=== PATIENT | female | born 1985 ===

== ENCOUNTER 2017-04-18 18:43 | Emergency (ER) | payer MEDICAID ==
--- NOTE | 2017-04-18 19:55 | C.PDOC ---
History Of Present Illness 32 yr old female presents to the ER with complaints of chest pain, cough and subjective fevers for 1 day. Patient states the cough is dry. Denies sore throat , SOB, nausea, vomiting, weakness or numbness. Time Seen by Provider: 04/18/17 19:46 Chief Complaint (Nursing): Chest Pain History Per: Patient History/Exam Limitations: no limitations Onset/Duration Of Symptoms: Days (1) Current Symptoms Are (Timing): Still Present Past Medical History Reviewed: Historical Data, Nursing Documentation, Vital Signs Vital Signs: Last Vital Signs Temp 98.1 F 04/18/17 21:37 Pulse 72 04/18/17 21:37 Resp 18 04/18/17 21:37 BP 110/71 04/18/17 21:37 Pulse Ox 96 04/18/17 21:37 Family History: States: No Known Family Hx - Social History Hx Alcohol Use: Yes Hx Substance Use: No - Immunization History Hx Tetanus Toxoid Vaccination: No Hx Influenza Vaccination: No Hx Pneumococcal Vaccination: No Review Of Systems Except As Marked, All Systems Reviewed And Found Negative. Constitutional: Positive for: Fever (subjective) ENT: Negative for: Throat Pain Cardiovascular: Positive for: Chest Pain Respiratory: Positive for: Cough (dry). Negative for: Shortness of Breath Gastrointestinal: Negative for: Nausea, Vomiting Neurological: Negative for: Weakness, Numbness Physical Exam - Physical Exam Appears: Non-toxic, No Acute Distress Skin: Warm, Dry, No Rash Head: Atraumatic, Normacephalic Eye(s): bilateral: Normal Inspection, PERRL, EOMI Oral Mucosa: Moist Throat: Normal, No Erythema, No Exudate, No Drooling Neck: Normal, Normal ROM, Supple Chest: Symmetrical, No Tenderness Cardiovascular: Rhythm Regular, No Murmur Respiratory: Normal Breath Sounds, No Rales, No Rhonchi, No Stridor, No Wheezing Extremity: Normal ROM, Swelling Neurological/Psych: Oriented x3, Normal Speech ED Course And Treatment ECG: Interpreted By Me, Viewed By Me ECG Rhythm: Sinus Tachycardia Interpretation Of ECG: No ST/T wave changes. Rate From EC (BPM) O2 Sat by Pulse Oximetry: 97 (RA) Pulse Ox Interpretation: Normal Medical Decision Making Medical Decision Making: PLAN: * CXR * Influenza * Tylenol PO cxr neg as read by me. ekg no changes, vital iimproved tachycardia resolved. no resp distress, speaking full sentences. Disposition - Disposition Referrals: [facility] [Outside] [facility] [Outside] Aneesh Frye MD [Staff Provider] - Disposition: HOME/ ROUTINE Disposition Time: 21:25 Condition: STABLE Additional Instructions: please follow up with your doctor/clinic. return to er with worsening symptoms or concerns Prescriptions: Ibuprofen [Motrin Tab] 400 mg PO Q6 PRN #20 tab PRN Reason: Fever >100.4 F Instructions: Acute Bronchitis (ED), Viral Syndrome (ED) Forms: [email or web address] (Kiswahili) - Clinical Impression Clinical Impression: Chest pain - Scribe Statement The provider has reviewed the documentation as recorded by the Jamesibghazal Escobar Provider Attestation: All medical record entries made by the Jamesibghazal were at my direction and personally dictated by me. I have reviewed the chart and agree that the record accurately reflects my personal performance of the history, physical exam, medical decision making, and the department course for this patient. I have also personally directed, reviewed, and agree with the discharge instructions and disposition.
[2017-04-18 21:00] VITALS: RESP 18
[2017-04-18 21:38] VITALS: BP 110/71; PULSE 72; TEMP 98.1
[2017-04-18 21:52] VITALS: O2SAT 97
--- NOTE | 2017-04-19 06:49 | RAD ---
Chest x-ray two views History: Chest pain. Comparison: None available. Findings: No focal infiltrate or effusion. Heart size within normal limits. Bibasilar breast and nipple shadows. Scoliotic curvature of the spine. Impression: No focal infiltrate or effusion. Heart size within normal limits. Bibasilar breast and nipple shadows. Scoliotic curvature of the spine.
--- NOTE | 2017-04-23 15:54 | CARD ---
APPROVED REPORT EKG Measurement Heart [id number] <Conclusion> Sinus tachycardia Otherwise normal ECG
== END 2017-04-18 21:39 | disposition home or self-care (01) ==
LOC: C.ER 18:43
DX: R07.9 Chest pain, unspecified (principal)